=== PATIENT | female | born 1990 | race Two or more races ===

== ENCOUNTER 2017-02-04 22:50 | Emergency (ER) | payer BC, OTHER ==
[~2017-02-04] VITALS: Ht 162.6 cm; Wt 53.0 kg
[2017-02-04 23:57] VITALS: Ht 162.6 cm; Wt 53.0 kg
--- NOTE | 2017-02-05 03:33 | ERD ---
ER Documentation Chief Complaint Date/Time DATE: 02/05/17 TIME: 03:31 Chief Complaint sharp like chest pain radiating on left arm, started 2 hours ago. feels anx HPI 27-year-old female presents to emergency department for complaint of mid chest pain, was shaking, sweating, feeling anxious started 2 hours prior to arrival. Patient verbalizes that she is in a lot of stress lately, has a lot of pressure in her job. Patient started to have chest pain, sharp pain, for sessions scale, is worse upon taking a deep breath. Patient was sweating and was shaking, patient verbalizing much better at this time, denies any symptoms at this time. ROS All systems reviewed and are negative except as per history of present illness. Medications Home Meds Reported Medications [none] Unknown Strength No Conflict Check 02/05/17 Allergies Allergies: Coded Allergies: No Known Allergy (Unverified , 02/05/17) PMhx/Soc Medical and Surgical Hx: pt denies Surgical Hx History of Surgery: Yes (rhinoplasty) Anesthesia Reaction: No Hx Neurological Disorder: No Hx Respiratory Disorders: No Hx Cardiac Disorders: No Hx Psychiatric Problems: No Hx Miscellaneous Medical Probl: No Hx Alcohol Use: No Hx Substance Use: No Hx Tobacco Use: No Smoking Status: Never smoker FmHx Family History: No coronary disease, No diabetes, No other Physical Exam Vitals Vital Signs Date Time Temp Pulse Resp B/P Pulse Ox O2 Delivery O2 Flow Rate FiO2 02/04/17 23:57 98.4 75 20 140/80 97 Physical Exam GENERAL: The patient is well developed and appropriate for usual state of health, in no apparent distress. CHEST: Clear to auscultation bilaterally. There are no rales, wheezes or rhonchi. HEART: Regular rate and rhythm. No murmurs, clicks, rubs or gallops. No S3 or S4. ABDOMEN: Soft, nontender and nondistended. Good bowel sounds. No rebound or guarding. No gross peritonitis. No gross organomegaly or masses. No Crump sign or McBurney point tenderness. BACK: No midline or flank tenderness. EXTREMITIES: Equal pulses bilaterally. There is no peripheral clubbing, cyanosis or edema. No focal swelling or erythema. Full range of motion. Grossly neurovascularly intact. NEURO: Alert and oriented. Cranial nerves 2-12 intact. Motor strength in all 4 extremities with 5/5 strength. Sensation grossly intact. Normal speech and gait. SKIN: There is no apparent rash or petechia. The skin is warm and dry. HEMATOLOGIC AND LYMPHATIC: There is no evidence of excessive bruising or lymphedema. No gross cervical, axillary, or inguinal lymphadenopathy. Results 24 hrs EKG was done, read by me and is normal sinus rhythm at a rate of 94, normal axis , there is no ST changes or changes in the EKG that indicates any cardiac emergencies at this time. Patient's EKG was also reviewed by Dr. Gonzalez. Impression: no acute findings on EKG PROCEDURE: XR Chest. CLINICAL INDICATION: Chest pain TECHNIQUE: Single frontal view of the chest was obtained COMPARISON: None FINDINGS: The heart and mediastinum are within normal limits. The lungs are clear. There is no pleural effusion or pneumothorax. Appearance of minimal curvature of the thoracic spine with convexity to the right. The patient appears to be minimally rotated to the left. ECG leads projected over the chest IMPRESSION: No acute disease. RPTAT: HJES .Vin Quick MD, MD Date Time Electronically viewed and signed by .Vin Quick MD, MD on 02/05/2017 03:56 .S/ CC: MARY PENDLETON [employer] REPA[employer]ER Procedures/MDM Medical Decision Making: Patient symptoms of chest pain most likely consistent with anxiety, stress related. There is low suspicion for cardiopulmonary emergencies at this time. Patient has low risk factors. EKG is normal, there is no changes in the EKG that indicates cardiac emergencies. Chest X-ray does not show cardiopulmonary emergencies at this time. There is low suspicion for aortic aneurysm, myocardial infarction, pneumothorax, pleural effusion, pulmonary embolism, or any other cardiopulmonary emergencies at this time. Patient is advised to see primary care doctor for further evaluation, possible physical medicine specialist, but stressors. Patient was advised to return to emergency department for any worsening symptoms. Dispostion: Home. Stable Departure Diagnosis: Primary Impression: Atypical chest pain Additional Impression: Anxiety Condition: Stable Patient Instructions: Anxiety Reaction, Chest Pain, Uncertain Cause Additional Instructions: Patient is advised to see primary care doctor for further evaluation, possible physical medicine specialist, but stressors. Patient was advised to return to emergency department for any worsening symptoms. MARY PENDLETON NP Feb 05, 2017 03:33
--- NOTE | 2017-02-05 03:56 | RADRPT ---
PROCEDURE: XR Chest. CLINICAL INDICATION: Chest pain TECHNIQUE: Single frontal view of the chest was obtained COMPARISON: None FINDINGS: The heart and mediastinum are within normal limits. The lungs are clear. There is no pleural effusion or pneumothorax. Appearance of minimal curvature of the thoracic spin e with convexity to the right. The patient appears to be minimally rotated to the left. ECG leads projected over the chest IMPRESSION: No acute disease. RPTAT: HJES .Vin Quick MD, MD Date Time Electronically viewed and signed by .Vin Quick MD, on 02/05/2017 03:56 .S/
== END 2017-02-05 05:00 | disposition home or self-care (01) ==
LOC: FTE 22:50
DX: R07.89 Other chest pain (principal); F41.9 Anxiety disorder, unspecified
CPT/HCPCS: 71010; 93005